=== PATIENT | female | born 1945 | race Caucasian/White ===

== ENCOUNTER → 2024-08-10 | Outpatient (CLI) | payer MEDICARE, BC, SELFPAY ==
[2024-08-10 09:25] LABS: Anion Gap 4 (7-16); BUN/Creatinine Ratio 8 Ratio (12-20); Blood Urea Nitrogen 9 mg/dL (9-23); Calcium 10.6 mg/dL (8.3-10.6); Carbon Dioxide 29.7 mMol/L (20.0-31.0); Cardiac Risk Estimate 2.1 RATIO (3.7-5.6); Chloride 93 mMol/L (98-107); Cholesterol 265 mg/dL (132-200); Creatinine (Component) 1.2 mg/dL (0.6-1.3); Glucose 99 mg/dL (74-106); HDL Cholesterol 124 mg/dL (40-60); LDL Cholesterol,Calculated 118 mg/dL (0-130); Osmolality,Calculated 253 (275-295); Potassium 3.6 mMol/L (3.4-5.1); Sodium 127 mMol/L (136-145); Thyroid Stimulating Hormone 1.69 uIU/mL (0.55-4.78); Triglycerides 117 mg/dL (30-150); eGFR 47 See Note
[2024-08-15 06:46] LABS: T3 Uptake* 30 % (22-35)
== END | disposition home or self-care (01) ==
LOC: COPL 08:00
PROVIDERS: PCP Family Medicine; Referring Provider Family Medicine; Visit Provider Family Medicine
DX: I12.9 Hypertensive chronic kidney disease with stage 1 through stage 4 chronic kidney disease, or unspecified chronic kidney disease (principal); N18.2 Chronic kidney disease, stage 2 (mild); E03.9 Hypothyroidism, unspecified
CPT/HCPCS: 36415; 80048; 80061; 84443; 84479

== ENCOUNTER → 2024-09-13 | Outpatient (CLI) | payer MEDICARE, BC, SELFPAY ==
[2024-09-13 11:37] LABS: Anion Gap 8 (7-16); BUN/Creatinine Ratio 9 Ratio (12-20); Blood Urea Nitrogen 12 mg/dL (9-23); Calcium 9.8 mg/dL (8.3-10.6); Carbon Dioxide 24.7 mMol/L (20.0-31.0); Chloride 97 mMol/L (98-107); Creatinine (Component) 1.3 mg/dL (0.6-1.3); Glucose 103 mg/dL (74-106); Osmolality,Calculated 260 (275-295); Potassium 4.2 mMol/L (3.4-5.1); Sodium 130 mMol/L (136-145); eGFR 43 See Note
== END | disposition home or self-care (01) ==
LOC: COPL 10:04
PROVIDERS: PCP Family Medicine; Referring Provider Family Medicine; Visit Provider Family Medicine
DX: E87.1 Hypo-osmolality and hyponatremia (principal)
CPT/HCPCS: 36415; 80048

== ENCOUNTER → 2024-10-12 | Outpatient (CLI) | payer MEDICARE, BC, SELFPAY ==
[2024-10-12 12:28] LABS: Anion Gap 8 (7-16); BUN/Creatinine Ratio 9 Ratio (12-20); Blood Urea Nitrogen 14 mg/dL (9-23); Calcium 10.1 mg/dL (8.3-10.6); Carbon Dioxide 28.4 mMol/L (20.0-31.0); Chloride 93 mMol/L (98-107); Creatinine (Component) 1.6 mg/dL (0.6-1.3); Glucose 93 mg/dL (74-106); Osmolality,Calculated 259 (275-295); Potassium 3.8 mMol/L (3.4-5.1); Sodium 129 mMol/L (136-145); eGFR 33 See Note
== END | disposition home or self-care (01) ==
LOC: COPL 11:06
PROVIDERS: PCP Family Medicine; Referring Provider Family Medicine; Visit Provider Family Medicine
DX: E87.1 Hypo-osmolality and hyponatremia (principal)
CPT/HCPCS: 36415; 80048

== ENCOUNTER → 2024-10-26 | Outpatient (CLI) | payer MEDICARE, BC, SELFPAY ==
--- NOTE | 2024-10-26 16:30 | XR_ITS ---
Examination: Retroperitoneal ultrasound, complete Technique: Multiple high resolution grayscale images of the retroperitoneum obtained, including kidneys and bladder. Exam date and time:October 26, 2024 1618 hours INDICATIONS: Diagnosis chronic kidney disease stage II FINDINGS: Right kidney 9.9 x 3.9 x 4.8 cm cortex 1.1 cm Left kidney 10.5 x 4.6 x 4.6 cm cortex 1.1 cm Mild to moderate bilateral renal scar formation No hydronephrosis Contracted urinary bladder 28 cc IMPRESSION: Bilateral renal cortical thinning Mild to moderate bilateral renal parenchymal scar formation. No hydronephrosis
== END | disposition home or self-care (01) ==
LOC: CDIM 15:58
PROVIDERS: Referring Provider Family Medicine; Visit Provider Family Medicine
DX: N28.89 Other specified disorders of kidney and ureter (principal)
CPT/HCPCS: 76770

== ENCOUNTER → 2024-11-11 | Outpatient (CLI) | payer MEDICARE, BC, SELFPAY ==
[2024-11-11 13:44] LABS: Anion Gap 7 (7-16); BUN/Creatinine Ratio 11 Ratio (12-20); Blood Urea Nitrogen 19 mg/dL (9-23); Calcium 10.4 mg/dL (8.3-10.6); Carbon Dioxide 26.5 mMol/L (20.0-31.0); Chloride 100 mMol/L (98-107); Creatinine (Component) 1.8 mg/dL (0.6-1.3); Glucose 97 mg/dL (74-106); Osmolality,Calculated 268 (275-295); Potassium 4.6 mMol/L (3.4-5.1); Sodium 133 mMol/L (136-145); eGFR 29 See Note
[2024-11-11 14:03] LABS: Collection Type, Urine Clean Catch
[2024-11-11 14:38] LABS: Chloride,Urine Random 47.7 mMol/L (55.0-125.0); Potassium,Urine Random 50 mMol/L (12-62)
[2024-11-11 14:39] LABS: Bilirubin,Urine Negative (Negative); Blood,Urine Negative (Negative); Clarity,Urine Clear (Clear/Hazy); Color,Urine Yellow (Lt Yel-Yel); Glucose, Urine Negative (Negative); Hyaline Casts,Urine 1 /hpf (0-1); Ketones,Urine Negative (Negative); Leukocyte Esterase,Urine Positive (Negative); Nitrite,Urine Negative (Negative); Protein,Urine Trace (Neg - Trace); RBC,Urine 4 /hpf (0-3); Specific Gravity,Urine 1.015 (1.001-1.035); Squamous Epithelial Cell,Urine < 1 /hpf (0-5); Urobilinogen,Urine Negative mg/dL (0.0-1.0); WBC,Urine 2 /hpf (0-5)
== END | disposition home or self-care (01) ==
PROVIDERS: PCP Family Medicine; Referring Provider Family Medicine; Visit Provider Family Medicine
DX: E87.1 Hypo-osmolality and hyponatremia (principal); N18.2 Chronic kidney disease, stage 2 (mild)
CPT/HCPCS: 36415; 80048; 81001; 82436; 84133; 84300

== ENCOUNTER → 2024-12-09 | Outpatient (CLI) | payer MEDICARE, BC, SELFPAY ==
[2024-12-09 11:39] LABS: Anion Gap 10 (7-16); BUN/Creatinine Ratio 9 Ratio (12-20); Blood Urea Nitrogen 13 mg/dL (9-23); Calcium 9.8 mg/dL (8.3-10.6); Carbon Dioxide 25.8 mMol/L (20.0-31.0); Chloride 97 mMol/L (98-107); Creatinine (Component) 1.5 mg/dL (0.6-1.3); Glucose 89 mg/dL (74-106); Osmolality,Calculated 265 (275-295); Potassium 5.2 mMol/L (3.4-5.1); Sodium 133 mMol/L (136-145); eGFR 36 See Note
== END | disposition home or self-care (01) ==
PROVIDERS: PCP Family Medicine; Referring Provider Family Medicine; Visit Provider Family Medicine
DX: N18.4 Chronic kidney disease, stage 4 (severe) (principal)
CPT/HCPCS: 36415; 80048

== ENCOUNTER → 2025-02-21 | Outpatient (CLI) | payer MEDICARE, BC, SELFPAY ==
[2025-02-21 16:46] LABS: Anion Gap 11 (7-16); BUN/Creatinine Ratio 8 Ratio (12-20); Blood Urea Nitrogen 11 mg/dL (9-23); Calcium 9.3 mg/dL (8.3-10.6); Carbon Dioxide 24.3 mMol/L (20.0-31.0); Chloride 88 mMol/L (98-107); Creatinine (Component) 1.3 mg/dL (0.6-1.3); Glucose 95 mg/dL (74-106); Osmolality,Calculated 247 (275-295); Potassium 4.9 mMol/L (3.4-5.1); Sodium 123 mMol/L (136-145); eGFR 42 See Note
== END | disposition home or self-care (01) ==
LOC: COPL 12:25
PROVIDERS: PCP Family Medicine; Referring Provider Family Medicine; Visit Provider Family Medicine
DX: N18.32 Chronic kidney disease, stage 3b (principal)
CPT/HCPCS: 36415; 80048

== ENCOUNTER 2025-04-23 13:25 | Emergency (ER) | payer MEDICARE, BC, SELFPAY ==
[2025-04-23 13:26] VITALS: BMI 20.7
[2025-04-23 13:33] VITALS: BP 120/68; PULSE 74; RESP 12; TEMP 37; O2SAT 97
--- NOTE | 2025-04-23 13:35 | PD.EDSKIN ---
ED Skin Abcess FB-RME/HPI General Chief complaint: Skin/Abscess/Foreign Body Stated complaint: LEFT LEG CELLULITIS SINCE THU Time Seen by Provider: 04/23/25 13:29 Arrival date/time: 04/23/25 13:25 Limitations: no limitations RME / HPI RME / HPI narrative: 77-year-old with a history of hypertension, hyperlipidemia, is here today with redness, swelling, and a right lower leg. She states she was scratched by her dog 5 days ago. She does not recall her last tetanus shot. She notes some clear drainage from her right lower leg today. She has no fevers or chills. She has no other acute complaints. Related Data Home Medications ?Medication ?Instructions ?Recorded ?Confirmed amlodipine 5 mg tablet (Norvasc) 5 mg PO QDAY #0 tabs 07/06/14 01/24/19 aspirin 81 mg tablet,delayed 81 mg PO QDAY ##0 11/29/14 01/24/19 release (Aspir-Low) albuterol sulfate 90 mcg/actuation 2 puff inhalation Q6H PRN Wheezing 01/21/19 01/21/19 aerosol inhaler (ProAir HFA) amiodarone 200 mg tablet 200 mg PO QDAY 01/21/19 01/24/19 calcium carbonate-vitamin D3 600 1 tab PO DAILY 01/21/19 01/21/19 mg-125 unit tablet (Calcium) hydrochlorothiazide 25 mg tablet 25 mg PO QDAY 01/21/19 01/24/19 levocetirizine 5 mg tablet 5 mg PO QDAY 01/21/19 01/21/19 levothyroxine 88 mcg tablet 88 mcg PO QDAY 01/21/19 01/24/19 losartan 100 mg tablet 100 mg PO QDAY 01/21/19 01/24/19 rosuvastatin 10 mg tablet (Crestor) 10 mg PO QDAY 01/21/19 01/24/19 melatonin 5 mg tablet 5 mg PO HS PRN Insomnia 01/24/19 01/24/19 metoprolol succinate 50 mg 50 mg PO QDAY 01/24/19 01/24/19 tablet,extended release 24 hr [id number] acid 200 2 tab PO QDAY 01/24/19 01/24/19 mcg-herbal no.245 37.5 mg chewable tablet (Alive Women's Gummy Vitamin (with choline)) Previous Rx's ?Medication ?Instructions ?Recorded docusate sodium 100 mg capsule 100 mg PO QDAY #20 caps 01/26/19 hydrocodone 10 mg-acetaminophen 1 tab PO Q6H PRN Pain Scale 1-3 01/26/19 325 mg tablet (Mild #50 tabs rivaroxaban 10 mg tablet (Xarelto) 10 mg PO Q24H #12 tabs 01/26/19 acetaminophen 325 mg tablet 650 mg (2 x 325 mg) PO Q6H PRN 09/23/23 (Tylenol) pain #30 tabs doxycycline hyclate 100 mg capsule 100 mg PO BID #14 caps 04/23/25 Allergies Allergy/AdvReac Type Severity Reaction Status Date / Time adhesive tape Allergy Unknown Verified 04/23/25 13:28 latex Allergy Unknown Verified 04/23/25 13:28 Sulfa (Sulfonamide Allergy Unknown Verified 04/23/25 13:28 Antibiotics) Penicillins Allergy Swelling Verified 04/23/25 13:28 of Lip/Tongue/Throat Review of Systems Review of Systems Systems Reviewed: All systems reviewed, normal except as documented ED Exam General Limitations: Present no limitations General appearance: Present alert and in no apparent distress Head Head exam: Present atraumatic Eye Eye exam: Present normal appearance, PERRL and EOMI ENT ENT exam: Present normal exam, normal oropharynx and mucous membranes moist Neck Neck exam: Present normal inspection, full ROM and trachea midline Chest Chest inspection: Present normal inspection and symmetric chest wall rise Respiratory Respiratory exam: Present normal lung sounds bilaterally Cardiovascular Cardiovascular exam: Present regular rate, normal rhythm and normal heart sounds Abdominal Exam Abdominal exam: Present soft and normal bowel sounds Extremities Exam Extremities exam: Present normal inspection and full ROM Back Exam Back exam: Present normal inspection and full ROM Neurological Exam Neurological exam: Present alert and oriented X3 Psychiatric Psychiatric exam: Present normal affect and normal mood Skin Skin exam: Present normal color and other (mild erythema with clear drainage at the right anterior lower leg. Mild erythem and warmth is present. ) Course Quality Measures none Orders Category Date Time Status Wound Cult and GS, Anaer Stat Lab 04/23/25 13:55 Received Doxycycline [Vibramycin] Med 04/23/25 13:32 Discontinued 100 mg PO X1 ONE TET,DIP/PERT AC (Adult)-Tdap [Boostrix Adult (Tdap) Med 04/23/25 13:29 Discontinued Vacc] 0.5 ml IMI .ONCE ONE Vital Signs Vital signs: Vital Signs Temperature 98.6 F 04/23/25 13:33 Pulse Rate 74 04/23/25 13:33 Respiratory Rate 12 04/23/25 13:33 Blood Pressure 120/68 04/23/25 13:33 Pulse Oximetry (%) 97 04/23/25 13:33 Oxygen Delivery Method Room Air 04/23/25 13:33 Skin / Abscess / Foreign Body MDM Narrative MDM Narrative:: 77-year-old with a history of hypertension, hyperlipidemia, is here today with redness, swelling, and a right lower leg. She states she was scratched by her dog 5 days ago. She does not recall her last tetanus shot. She notes some clear drainage from her right lower leg today. She has no fevers or chills. She has no other acute complaints. On exam, patient is nontoxic-appearing and in no visible signs stress. She has mild erythema warmth at the right anterior lower leg. There is small amounts of clear drainage is present that is cultured. Patient is placed on doxycycline. She states she does not have a allergy to tetanus although it was on her allergy list. She was provided with a tetanus vaccine and monitored for 30 minutes afterwards. She had no reaction to this. She be discharged with a prescription of doxycycline. She agrees to follow-up with her primary clinic within 1 to 2 weeks for recheck. Return anytime for any worsening emergent changes. Patient data External records reviewed:: None Clinical information provided by:: patient Social determinants that could affect healthcare access:: none Patient has the following chronic illnesses:: Diabetes, hyperlipidemia How is presenting disease/condition affected by chronic disease/condition?: uneffected by Evaluation data The following diagnostics were reviewed and interpreted by me:: other (specify) (n/a) Lab and/or radiology exams considered but not ordered:: n/a Interpretation Summary: n/a Medications / Prescriptions Medications or Prescriptions considered but not ordered:: n/a Medication administrations:: Medication Administration History Discontinued Medications Diphtheria/Tetanus/Acell Pertussis (Diphth,Pertuss(Acell),Tet Vac 0.5 Ml Syr- Adult) 0.5 ml IMi .ONCE ONE Stop: 04/23/25 13:30 Last Admin: 04/23/25 13:51 Dose: 0.5 ml Documented By: ARIELLA Doxycycline Hyclate (Doxycycline 100 Mg Tablet) 100 mg PO X1 ONE Stop: 04/23/25 13:33 Last Admin: 04/23/25 13:50 Dose: 100 mg Documented By: ARIELLA See above Consultations Consultation(s) initiated? (list below): No Diagnosis Skin/Abscess Differential Diagnosis: urticaria, cellulitis, eczema, insect bites and contact dermatitis Most likely diagnosis given after review of the tests above:: Cellulitis Admission Indicated Admission indicated?: not indicated Admission Request Was there a request for admission?: No Disposition Plan Disposition Plan: Discharge Discharge Attestation Discharge Attestation: The patient and all family members were given an opportunity to ask questions and understood the discharge instructions. Discharge instructions specifically effects, indications for sooner follow up or return to the emergency department, and the expected course of current diagnosis. Patient condition: Stable Discharge Plan Plan Patient Disposition: HOME (Self Care) Patient condition on transfer: Stable Prescriptions/Referrals Prescriptions/Med Rec: New doxycycline hyclate 100 mg capsule 100 mg PO BID Qty: 14 0RF No Action amlodipine [Norvasc] 5 MG tablet 5 mg PO QDAY Qty: 0 aspirin [Aspir-Low] 81 mg Tablet,Delayed Release (Dr/Ec) 81 mg PO QDAY Qty: 0 amiodarone 200 mg Tablet 200 mg PO QDAY levothyroxine 88 mcg Tablet 88 mcg PO QDAY hydrochlorothiazide 25 mg Tablet 25 mg PO QDAY albuterol sulfate [ProAir HFA] 90 mcg/actuation Hfa Aerosol Inhaler 2 puff INHALATION Q6H PRN (Reason: Wheezing) losartan 100 mg Tablet 100 mg PO QDAY rosuvastatin [Crestor] 10 mg Tablet 10 mg PO QDAY Calcium 600 + D(3) 600-125 mg-unit Tablet 1 tab PO DAILY levocetirizine 5 mg Tablet 5 mg PO QDAY metoprolol succinate 50 mg Tablet Extended Release 24 Hr 50 mg PO QDAY melatonin 5 mg Tablet 5 mg PO HS PRN (Reason: Insomnia) Alive Women Gummy Vit(choline) 200 mcg- 37.5 mg Tablet,Chewable 2 tab PO QDAY hydrocodone-acetaminophen 10-325 mg Tablet 1 tab PO Q6H MDD 6 PRN (Reason: Pain Scale 1-3 (Mild) Qty: 50 0RF docusate sodium 100 mg Capsule 100 mg PO QDAY Qty: 20 0RF Xarelto 10 mg Tablet 10 mg PO Q24H Qty: 12 0RF acetaminophen [Tylenol] 325 mg tablet 650 mg PO Q6H PRN (Reason: pain) Qty: 30 0RF Problem List Clinical Impression: Cellulitis Patient/Caregiver Discharge Instructions Education Materials: ED Cellulitis Additional Instructions: -Use the provided antibiotic every 12 hours for 1 week. -Follow up this week. -Return here as needed for any emergent changes. Print Language: Frisian Stand Alone Forms: [facility] Award Info., Patient Portal Info Letter
[2025-04-23] MEDS: DOXYCYCLINE 100 MG TABLET PO (13:50)
[2025-04-23] MEDS: DIPHTH,PERTUSS(ACELL),TET VAC 0.5 ML SYR- ADULT IMi (13:51)
== END 2025-04-23 15:03 | disposition home or self-care (01) ==
LOC: SERX 14:53
PROVIDERS: Emergency Provider Physician Assistant Medical; PCP Family Medicine
DX: L03.116 Cellulitis of left lower limb (principal); Z23 Encounter for immunization
CPT/HCPCS: 87070; 87075; 87205; 90471; 90715; 99283; A9270

== ENCOUNTER → 2025-06-26 | Outpatient (CLI) | payer MEDICARE, BC, SELFPAY ==
[2025-06-26 11:31] LABS: Basophils # (Auto) 0.0 Thou/mm3 (0.0-0.2); Basophils % (Auto) 1 % (0-2.5); Eosinophils # (Auto) 0.1 Thou/mm3 (0.0-0.5); Eosinophils % (Auto) 1 % (0-10); Hematocrit 36.3 % (36.0-46.0); Hemoglobin 12.4 g/dL (12.0-16.0); Immature Granulocytes Auto 0.03 Thou/mm3 (0.00-0.00); Lymphocytes # (Auto) 1.1 Thou/mm3 (1.0-4.8); Lymphocytes % (Auto) 15 % (10-50); Mean Corpuscular HGB Conc 34.2 g/dl (31.0-37.0); Mean Corpuscular Hemoglobin 31.0 pg (25.0-35.0); Mean Corpuscular Volume 91 fL (80-100); Monocytes # (Auto) 0.7 Thou/mm3 (0.0-0.8); Monocytes % (Auto) 9 % (0-12); Neutrophils # (Auto) 5.5 Thou/mm3 (1.8-7.7); Neutrophils % (Auto) 75 % (37-80); Nucleated Red Blood Cell # 0.00 Thou/mm3 (0.00-0.00); Nucleated Red Blood Cell % 0 /100 WBC (0); Platelet Count 483 Thou/mm3 (140-440); RDW Standard Deviation 39.5 fL (36.4-46.3); Red Blood Count 4.00 Miln/mm3 (4.00-5.20); White Blood Count 7.4 Thou/mm3 (3.6-11.0)
[2025-06-26 11:51] LABS: Anion Gap 8 (7-16); BUN/Creatinine Ratio 7 Ratio (12-20); Blood Urea Nitrogen 8 mg/dL (9-23); Calcium 10.2 mg/dL (8.3-10.6); Carbon Dioxide 25.2 mMol/L (20.0-31.0); Chloride 92 mMol/L (98-107); Creatinine (Component) 1.2 mg/dL (0.6-1.3); Free T4 (Free Thyroxine) 1.41 ng/dL (0.89-1.76); Glucose 92 mg/dL (74-106); Osmolality,Calculated 249 (275-295); Potassium 3.9 mMol/L (3.4-5.1); Sodium 125 mMol/L (136-145); Thyroid Stimulating Hormone 1.66 uIU/mL (0.55-4.78); eGFR 47 See Note
== END | disposition home or self-care (01) ==
LOC: COPL 10:33
PROVIDERS: PCP Family Medicine; Referring Provider Family Medicine; Visit Provider Family Medicine
DX: N18.32 Chronic kidney disease, stage 3b (principal); E03.9 Hypothyroidism, unspecified
CPT/HCPCS: 36415; 80048; 84439; 84443; 85025